=== PATIENT | female | born 1980 | race Caucasian/White ===

== ENCOUNTER → 2019-01-22 | Outpatient (CLI) | payer BC ==
[~2019-01-22] MED LIST: AUGMENTIN 875 M1 TA1 PO; CLARITIN10 MG PO; COLACE100 MG PO; FLAGYL500 MG PO; IBUPROFEN 30 M800 MG PO; IBUPROFEN200 M1 PO; IRON325 M1 PO; MEDROL DOSEPAK4 MG PO; METHERGINE0.2 MG V; NKHM PO; PERCOCET 325 MG1 TA2 PO; THERAGRAN1 TA1 PO; THERAGRAN1 TAB PO; TRAMADOL HCL50 MG PO; TRIAMCINOLONE AC0.5% T; VICODIN 500 MG-1 TAB PO; ZITHROMAX Z PA250 MG PO
== END | disposition home or self-care (01) ==
LOC: RAD 13:37
DX: M25.562 Pain in left knee (principal)

== ENCOUNTER → 2019-04-16 | Outpatient (CLI) | payer BC | END | disposition home or self-care (01) | LOC: RAD 09:58 | DX: M48.061 Spinal stenosis, lumbar region without neurogenic claudication (principal) ==

== ENCOUNTER → 2019-11-26 | Outpatient (CLI) | payer BC | END | disposition home or self-care (01) | LOC: RAD 11:48 | DX: M54.9 Dorsalgia, unspecified (principal) ==

== ENCOUNTER → 2020-10-13 | Outpatient (CLI) | payer BC | END | disposition home or self-care (01) | LOC: COVID19 15:58 | PROVIDERS: ATTEND Nurse Practitioner Family | DX: Z20.822 Contact with and (suspected) exposure to COVID-19 (principal) ==

== ENCOUNTER 2023-02-02 23:55 | Emergency (ER) | payer BC ==
[~2023-02-02] VITALS: Ht 177.8 cm; Wt 92.1 kg
[2023-02-03 00:39] LABS: BILIRUBIN Negative (Negative); BLOOD Negative (Negative); CLARITY Cloudy (Clear); COLOR Yellow (Yellow); GLUCOSE Negative (Negative); KETONE Negative (Negative); LEUKO ESTERASE 2+ (Negative); NITRITE Negative (Negative)
[2023-02-03 00:48] LABS: BASO % 0.4 % (0.0-1.0); EOS # 0.1 10*3/uL (0.0-0.4); EOS % 1.7 % (1.0-4.0); HEMATOCRIT 40.6 % (37.0-47.0); LYMPH # 1.8 10*3/uL (1.3-4.4); LYMPH % 25.2 % (27.0-41.0); MEAN CELL VOLUME 95.1 fl (81.0-99.0); MEAN CORPUSCULAR HGB 32.6 pg (27.0-31.0); MEAN CORPUSCULAR HGB CONC 34.2 g/dl (33.0-37.0); MEAN PLATELET VOLUME 9.6 fl (9.6-12.3); MONO # 0.6 10*3/uL (0.1-1.0); MONO % 7.6 % (3.0-9.0); NEUT # 4.7 10*3/uL (2.3-7.9); NEUT % 64.8 % (47.0-73.0); PLATELET COUNT AUTOMATED 259 10*3/uL (130-400); RED BLOOD COUNT 4.27 10*6/uL (4.10-5.10); RED CELL DISTRI WIDTH 12.8 % (0-14.5); WHITE BLOOD COUNT 7.3 10*3/uL (4.8-10.8)
[2023-02-03 00:58] LABS: EPITHELIAL CELLS 31-40
[2023-02-03 00:59] LABS: BACTERIA 1+
[2023-02-03 01:05] LABS: ALKALINE PHOSPHATASE 62 U/L (46-116); BUN 11 mg/dl (9-23); CHLORIDE 103 mmol/L (98-107); POTASSIUM 3.7 mmol/L (3.4-5.1); SGPT/ALT 42 U/L (10-49); TOTAL PROTEIN 7.1 gm/dL (6.0-8.0)
[2023-02-03 01:45] VITALS: BP 126/64
[2023-02-03] MEDS ORDERED: OMNICEF300 MG PO (02:08)
== END 2023-02-03 02:48 | disposition home or self-care (01) ==
LOC: ED 23:55
PROVIDERS: Emergency Medicine
DX: N39.0 Urinary tract infection, site not specified (principal); R10.9 Unspecified abdominal pain; R91.1 Solitary pulmonary nodule

== ENCOUNTER 2023-03-15 00:29 | Emergency (ER) | payer SELFPAY ==
[~2023-03-15] VITALS: Ht 177.8 cm; Wt 90.7 kg
[~2023-03-15 00:29] MED LIST changes: +OMNICEF300 MG PO
[2023-03-15 00:48] LABS: BASO % 0.7 % (0.0-1.0); EOS # 0.1 10*3/uL (0.0-0.4); EOS % 1.8 % (1.0-4.0); HEMATOCRIT 37.8 % (37.0-47.0); LYMPH # 2.8 10*3/uL (1.3-4.4); LYMPH % 46.1 % (27.0-41.0); MEAN CELL VOLUME 93.1 fl (81.0-99.0); MEAN CORPUSCULAR HGB 33.3 pg (27.0-31.0); MEAN CORPUSCULAR HGB CONC 35.7 g/dl (33.0-37.0); MEAN PLATELET VOLUME 8.9 fl (9.6-12.3); MONO # 0.6 10*3/uL (0.1-1.0); MONO % 10.6 % (3.0-9.0); NEUT # 2.4 10*3/uL (2.3-7.9); NEUT % 40.5 % (47.0-73.0); PLATELET COUNT AUTOMATED 261 10*3/uL (130-400); RED BLOOD COUNT 4.06 10*6/uL (4.10-5.10); RED CELL DISTRI WIDTH 12.8 % (0-14.5)
[2023-03-15 01:04] LABS: ACT PARTIAL THROMBO TIME 26.2 SECONDS (20.0-32.1)
[2023-03-15 01:10] LABS: ALKALINE PHOSPHATASE 65 U/L (46-116); BUN 8 mg/dl (9-23); CHLORIDE 105 mmol/L (98-107); LIPASE 32 U/L (12-53); POTASSIUM 3.7 mmol/L (3.4-5.1); SGPT/ALT 18 U/L (10-49); TOTAL PROTEIN 7.9 gm/dL (6.0-8.0)
[2023-03-15 02:05] LABS: BILIRUBIN Negative (Negative); BLOOD Negative (Negative); CLARITY Clear (Clear); COLOR Yellow (Yellow); GLUCOSE Negative (Negative); KETONE Negative (Negative); LEUKO ESTERASE Trace (Negative); NITRITE Negative (Negative); PH 5.5 (4.5-8.0); SPECIFIC GRAVITY 1.015 (1.001-1.030)
[2023-03-15 02:14] LABS: BACTERIA 1+; MUCOUS 1+
[2023-03-15 02:35] LABS: URINE AMPHETAMINES Negative (1000ng/ml); URINE BARBITURATES Negative (200ng/ml); URINE BENZODIAZEPINES Negative (200ng/ml); URINE CANNABINOIDS (THC) Negative (50ng/ml); URINE COCAINE Positive (300ng/ml); URINE METHADONE Negative (300ng/ml); URINE OPIATES Negative (300ng/ml); URINE PHENCYCLIDINE Negative (25ng/ml)
[2023-03-15 06:28] VITALS: BP 101/61
== END 2023-03-15 07:49 | disposition home or self-care (01) ==
LOC: ED 00:29
PROVIDERS: Internal Medicine
DX: S62.122A Displaced fracture of lunate [semilunar], left wrist, initial encounter for closed fracture (principal); Z79.899 Other long term (current) drug therapy; T74.21XA Adult sexual abuse, confirmed, initial encounter; Y93.89 Activity, other specified; Y92.89 Other specified places as the place of occurrence of the external cause; Y99.8 Other external cause status

== ENCOUNTER → 2023-07-17 | Outpatient (CLI) | payer BC ==
[2023-07-17 08:47] LABS: HEMATOCRIT 40.2 % (37.0-47.0); MEAN CELL VOLUME 95.3 fl (81.0-99.0); MEAN CORPUSCULAR HGB 32.5 pg (27.0-31.0); MEAN CORPUSCULAR HGB CONC 34.1 g/dl (33.0-37.0); MEAN PLATELET VOLUME 9.6 fl (9.6-12.3); RED BLOOD COUNT 4.22 10*6/uL (4.10-5.10); RED CELL DISTRI WIDTH 12.7 % (0-14.5); WHITE BLOOD COUNT 4.5 10*3/uL (4.8-10.8)
[2023-07-17 09:24] LABS: ALKALINE PHOSPHATASE 58 U/L (46-116); CHLORIDE 105 mmol/L (98-107); CHOLESTEROL 184 mg/dL (<200); LDL CHOLESTEROL 82 mg/dL (9-159); POTASSIUM 4.2 mmol/L (3.4-5.1); SGPT/ALT 15 U/L (5-49); TOTAL PROTEIN 7.3 gm/dL (6.0-8.0); TRIGLYCERIDES 253 mg/dl (<150)
[2023-07-17 09:25] LABS: BUN < 5 mg/dl (9-23)
[2023-07-17 09:39] LABS: VITAMIN D, 25-HYDROXY 44.3 ng/mL (30-100)
== END | disposition home or self-care (01) ==
LOC: LAB 08:11
PROVIDERS: ATTEND Family Medicine
DX: F41.1 Generalized anxiety disorder (principal); E55.9 Vitamin D deficiency, unspecified; L03.115 Cellulitis of right lower limb; E74.00 Glycogen storage disease, unspecified; E03.9 Hypothyroidism, unspecified; E78.00 Pure hypercholesterolemia, unspecified; R05.9 Cough, unspecified; R06.02 Shortness of breath

== ENCOUNTER 2024-09-08 21:48 | Emergency (ER) | payer SELFPAY ==
[~2024-09-08] VITALS: Ht 170.1 cm; Wt 77.1 kg
[2024-09-08 21:51] VITALS: BP 171/95
[2024-09-09] MEDS ORDERED: Ondansetron4 MG PO (02:52)
== END 2024-09-09 00:58 | disposition left against medical advice (07) ==
LOC: ED 21:48
DX: R10.84 Generalized abdominal pain (principal); Z53.29 Procedure and treatment not carried out because of patient's decision for other reasons; R11.2 Nausea with vomiting, unspecified; R10.2 Pelvic and perineal pain

== ENCOUNTER 2024-09-09 01:55 | Emergency (ER) | payer SELFPAY ==
[~2024-09-09] VITALS: Ht 177.8 cm; Wt 79.4 kg
[2024-09-09 02:00] VITALS: BP 135/65
[2024-09-09] MEDS ORDERED: Promethazine Hydrochloride 25 MG/ML VIAL IM ONE (02:05)
[2024-09-09] MEDS ORDERED: Ondansetron4 MG PO (02:52)
== END 2024-09-09 06:35 | disposition home or self-care (01) ==
LOC: ED 01:55
DX: K52.9 Noninfective gastroenteritis and colitis, unspecified (principal)